=== PATIENT | female | born 1935 | race Caucasian/White ===

== ENCOUNTER 2020-02-07 05:31 | Day surgery (SDC) | payer MEDICARE, OTHER ==
[2020-02-01 15:58] LABS: BASOPHILS # (AUTO) 0.1 X10'3 (0-0.2); BASOPHILS % (AUTO) 1.1 % (0-1); EOSINOPHILS # (AUTO) 0.1 X10'3 (0-0.9); EOSINOPHILS % (AUTO) 0.8 % (0-6); LYMPHOCYTES # (AUTO) 2.2 X10'3 (1.1-4.8); LYMPHOCYTES % (AUTO) 33.9 % (21-51); MEAN CORPUSCULAR HGB CONC 32.5 g/dL (33.0-36.5); MEAN CORPUSCULAR VOLUME 92.4 FL (78-98); MEAN PLATELET VOLUME 8.8 FL (7.4-10.4); MONOCYTES # (AUTO) 0.5 X10'3 (0-0.9); MONOCYTES % (AUTO) 7.2 % (2-12); NEUTROPHILS # (AUTO) 3.7 X10'3 (1.8-7.7); PRE OP HEMATOCRIT 37.1 % (35.0-45.0); PRE OP HEMOGLOBIN 12.1 g/dL (12.0-16.0); PRE OP PLATELET COUNT 273 X10'3 (140-440); RED BLOOD COUNT 4.02 X10'6 (4.20-5.60); RED CELL DISTRIBUTION WIDTH 14.3 % (11.5-14.5)
[2020-02-01 16:06] LABS: CLARITY,URINE SLIGHTLY CLOUDY (Clear); COLOR,URINE YELLOW (Yellow); GLUCOSE, URINE NEGATIVE (Neg); KETONES,URINE NEGATIVE (Neg); LEUKOCYTE ESTERASE ,URINE NEGATIVE (Neg); NITRITES, URINE NEGATIVE (Neg); OCCULT BLOOD,URINE NEGATIVE (Neg); PROTEIN,URINE NEGATIVE (Neg); UROBILINOGEN,URINE 0.2 E.U/dL (0.2-1.0)
[2020-02-01 16:09] LABS: UA COLLECTION TYPE CLN CATCH MIDSTREAM
[2020-02-01 16:15] LABS: ALBUMIN 3.5 G/DL (3.4-5.0); ALKALINE PHOSPHATASE 48 IU/L (46-116); BLOOD UREA NITROGEN 15 MG/DL (7-18); BUN/CREATININE RATIO 14.3 (6.6-38.0); CALCIUM 8.8 MG/DL (8.5-10.1); CHLORIDE 105 MMOL/L (99-107); CREATININE 1.05 MG/DL (0.40-0.90); PRE OP ALT 25 U/L (30-65); PRE OP ANION GAP 6 (8-16); PRE OP AST 21 U/L (10-37); PRE OP BILIRUB, TOTAL 0.3 MG/DL (0.0-1.0); PRE OP GLUCOSE 125 MG/DL (70-104); PRE OP POTASSIUM 3.9 MMOL/L (3.4-5.1); PRE OP SODIUM 140 MMOL/L (135-145); TOTAL CARBON DIOXIDE 28.6 MMOL/L (24-32); TOTAL PROTEIN 7.1 G/DL (6.4-8.2); eGFR 50 ML/MIN
[2020-02-01 16:26] LABS: BACTERIA,URINE 1+ /HPF (Neg); RBC,URINE NONE SEEN /HPF (0-2); SQUAMOUS EPITHELIAL CELL,UR MANY /LPF (FEW); WBC,URINE NONE SEEN /HPF (0-4)
[2020-02-07] VITALS (23 sets, daily range): BP systolic 90–185; BP diastolic 37–89
[~2020-02-07] VITALS: Ht 160 cm; Wt 68.0 kg
[~2020-02-07 05:31] MED LIST: ASPI-1264 PO; ATOR10TA87 PO; CALC-1099 PO; CALC-793 PO; CALC667C2 PO; DOCUMENT DATE & TIME OF BETA-BLOCKER PO ONE; FLUT1DIS4 INH; HYDR-3964 PO; LISI-642 PO; METO25TA6 PO; MULT-620 PO; PANT40TA54 PO; ceFOXitin sod/dextrose 2g/50ml 50 ML IV ONE; famotidine 20mg tablet PO ONE; ringers solution, lacted 1,000 ML IV SCH
[2020-02-07] MEDS ORDERED: BUPIVAcaine/PF 2.5 mg/ml (0.25%) 30ml vial ONE (07:57)
[2020-02-07] MEDS ORDERED: sevoflurane 250ml liquid IH ONE (08:05)
[2020-02-07] MEDS ORDERED: ringers solution, lacted 1,000 ML IV SCH (08:08)
[2020-02-07] MEDS ORDERED: ondansetron/PF 4mg/2ml inj IV PRN (08:10)
[2020-02-07] MEDS ORDERED: meperidine/PF 25mg/ml syringe IV PRN ×2 (08:10)
[2020-02-07] MEDS ORDERED: acetaminophen 1,000mg/100ml IV 100 ML IV PRN (08:10)
[2020-02-07] MEDS ORDERED: proCHLORperazine 10 MG/2 ml inj IV PRN (08:10)
[2020-02-07] MEDS ORDERED: hydrALAZINE 20mg/ml inj. IV PRN (08:10)
[2020-02-07] MEDS ORDERED: morphine 2 MG/ML inj. syringe IV PRN (08:10)
[2020-02-07] MEDS ORDERED: labetalol 20mg/4ml (5mg/ml) syringe IV PRN (08:10)
[2020-02-07] MEDS ORDERED: midazolam 2 mg/2 ml injection ONE (08:13)
[2020-02-07] MEDS ORDERED: fentaNYL/PF 50MCG/1 ML 2ML syringe ONE (08:13)
[2020-02-07] MEDS ORDERED: ondansetron/PF 4mg/2ml inj ONE (08:24)
[2020-02-07] MEDS ORDERED: dexamethasone sod phosphate 4mg/ml inj. ONE (08:24)
[2020-02-07] MEDS ORDERED: propofol inj 20 ML IV ONE (08:24)
[2020-02-07] MEDS ORDERED: rocuronium 10mg/ml inj IV ONE (08:24)
[2020-02-07] MEDS ORDERED: LIDOcaine 2% (20mg/ml) 5ml vial ONE (08:24)
[2020-02-07] MEDS ORDERED: ePHEDrine 50MG/ML INJ. ONE (08:30)
[2020-02-07] MEDS ORDERED: labetalol 20mg/4ml (5mg/ml) syringe IV ONE (08:58)
[2020-02-07] MEDS ORDERED: glycopyrrolate 0.2mg/ml inj ONE (09:39)
[2020-02-07] MEDS ORDERED: neostigmine methylsulfate 1 MG/ML 10ml vial ONE (09:39)
[2020-02-07] MEDS: meperidine/PF 25mg/ml syringe IV PRN ×3 (10:03→10:33)
--- NOTE | 2020-02-07 10:05 | NUR ---
Received from OR via [facility], accompanied by Anesthesiologist DR HOWELL and report given by Anesthesiologist. PT DROWSY, DENIES PAIN, ABDOMEN W/3 LAP SITES W/BANDAIDS CDI. Addendum: 02/07/20 at 1016 by Sweta Contreras RN Amended: Links added.
[2020-02-07] MEDS: morphine 4 MG/ML inj SYRINge IV PRN ×2 (10:45→11:09)
[2020-02-07] MEDS: fentaNYL/PF 50MCG/1 ML 2ML syringe IV PRN ×2 (12:01→12:10)
[2020-02-07] MEDS ORDERED: oxyCODONE/APAP 5-325mg tablet PO ONE (12:40)
--- NOTE | 2020-02-07 15:00 | NUR ---
PAIN UNDER CONTROL, PT UP AND ABLE TO AMBULATE, WENT TO BATHROOM AND WAS ONLY ABLE TO VOID SMALL DRIBBLE, PT WAS BLADDER SCANNED FOR 480 ML, CALL INTO DR STRATTON AND UPDATED, ORDERS TO PLACE GIRON CATHETER AND SEND PT HOME. 16 [place] GIRON CATHETER PLACED BY KLAUDIA BOSS, 400 ML RETURN YELLOW URINE, GIRON CATHETER AND D/C INSTRUCTIONS GIVEN AND GONE OVER /PT WHO VERBALIZED UNDERSTANDING. PT D/CD TO HOME VIA W/C TO PRIVATE VEHICLE W/O INCIDENT. Addendum: 02/07/20 at 1553 by Sweta Contreras RN Amended: Links added.
== END 2020-02-07 15:00 | disposition home or self-care (01) ==
LOC: PAS 05:31
PROVIDERS: ATTEND Surgery
DX: K80.12 Calculus of gallbladder with acute and chronic cholecystitis without obstruction (principal); K35.80 Unspecified acute appendicitis; K38.8 Other specified diseases of appendix; E78.5 Hyperlipidemia, unspecified; I25.10 Atherosclerotic heart disease of native coronary artery without angina pectoris; I12.9 Hypertensive chronic kidney disease with stage 1 through stage 4 chronic kidney disease, or unspecified chronic kidney disease; N18.3 Chronic kidney disease, stage 3 (moderate); J44.9 Chronic obstructive pulmonary disease, unspecified; Z72.89 Other problems related to lifestyle; Z79.899 Other long term (current) drug therapy; Z87.891 Personal history of nicotine dependence; Z20.828 Contact with and (suspected) exposure to other viral communicable diseases
CPT/HCPCS: 36415; 44970; 47562; 80053; 81001; 82948; 85025; 87635; J0131; J0360; J0694; J1100; J2001; J2175; J2250; J2270; J2405; J2704; J2710; J3010; J3490; J7120; 88304; A4215; A4618; A7000

== ENCOUNTER 2025-01-16 23:33 | Emergency (ER) | payer MEDICARE, OTHER ==
[~2025-01-16] VITALS: Ht 160 cm; Wt 79.0 kg
[~2025-01-16 23:33] MED LIST changes: -DOCUMENT DATE & TIME OF BETA-BLOCKER PO ONE; +LOP25T PO; -METO25TA6 PO; -ceFOXitin sod/dextrose 2g/50ml 50 ML IV ONE; -famotidine 20mg tablet PO ONE; -ringers solution, lacted 1,000 ML IV SCH
[2025-01-17 00:20] LABS: MEAN PLATELET VOLUME 8.5 FL (7.4-10.4); RED CELL DISTRIBUTION WIDTH 13.1 % (11.5-14.5)
[2025-01-17 00:38] LABS: CREATININE 1.23 MG/DL (0.40-0.90); TOTAL CARBON DIOXIDE 24.0 MMOL/L (24-32); eCRCL 27 ML/MIN; eGFR 41 ML/MIN
--- NOTE | 2025-01-17 00:39 | Physician Documentation ---
History of Present Illness ~ Chief Complaint: Abdominal Pain w/vomiting Stated Complaint: STOMACH PAINS,VOMITING Time Seen by MD: 00:37 Primary Medical Doctor: JUAN RAMON [facility] Patient presents to the emergency room for evaluation of epigastric pain. Onset three days ago. No fevers positive nausea and vomiting. No diarrhea. No bowel movements in a few days however she attributes this to not eating. She has had prior cholecystectomy as well as appendectomy. Medication Reconciliation Allergies: Coded Allergies: Iodine and Iodide Containing Produc (Verified Allergy, Intermediate, rash, 12/13/22) No Known Drug Allergies (Verified Allergy, Unknown, 02/06/20) Scheduled Aspirin* (Aspirin*), 1 TAB PO DAILY, (Reported) Atorvastatin Calcium* (Lipitor*), Unknown Dose PO DAILY, (Reported) Calcium Acetate (Phoslo), 1 CAP PO DAILY, (Reported) Calcium Carbonate (Calcium), 1 TAB PO BID, (Reported) Calcium Carbonate/Vitamin D3 (Vitamin D3 5,000 Unit Tablet), 1 TABLET PO DAILY, (Reported) Fluticasone/Salmeterol (Advair 250-50 Diskus), 1 PUFFS INH BID, (Reported) Lisinopril* (Zestril*), 1 TAB PO DAILY, (Reported) Metoprolol Tartrate* (Lopressor tablet*), 1 TAB PO Q12H, (Reported) Multivitamins (Multivitamins), 1 TABLET PO DAILY, (Reported) Pantoprazole Sodium (Pantoprazole Sodium), 1 TAB PO DAILY, (Reported) Scheduled PRN Hydrocodone Bit/Acetaminophen (Hydrocodon-Acetaminophen 5-325), 1 TAB PO BID PRN for pain, (Reported) Past Medical History Past Medical History: Coronary Artery Disease, COPD, GERD Past Surgical History: no surgical history Other Past Surgical History: Cardiac Cath Patient History: (Cancer) Malignant carcinoid tumor MOTHER, , Age: 86, Cause: Liver cancer ([place]) Myocardial infarction FATHER, , Age: 69, Cause: [place] (myocardial infarction) Alcohol Use: None Drug Use: none Lives with: S/O Lives In: Home Review of Systems ROS All review of systems negative except as per HPI Physical Exam Vital Signs: Temperature: 97.0, Source: Temporal, Heart Rate: 89, Respiratory Rate: 16, BP: 154/80, Pulse Oximetry: 97, Weight: 79.000 Oxygen Flow Rate: 0 Physical Exam General: Patient is awake, alert, oriented x4 in no acute distress Head: Normocephalic and atraumatic. Eyes: Conjunctival normal. EOMI. PERRL. ENT: Mucous membranes moist. Neck: Supple, trachea is midline. Chest: Clear to auscultation bilaterally without rales, rhonchi, or wheezes. There is no accessory muscle use or retractions. Cardiac: RRR without murmurs, gallops, or rubs. Abd: Soft, nondistended, nontender, with normoactive bowel sounds. No guarding, rebound, or rigidity. Progress Results/Orders Results/Orders Orders - HERB ALVES MD Ct Abdomen Pelvis (01/17/25 00:43) Completed Orders - HERB ALVES MD Cbc/Diff (01/16/25 23:37) BMP (01/16/25 23:37) Lipase (01/16/25 23:37) CMP (01/16/25 23:37) Ondansetron Inj. (Zofran 4mg/2ml Vial) (01/17/25 00:45) Morphine 4mg/Ml Inj. (Morphine Inj.) (01/17/25 00:45) Famotidine/Pf Iv Inj (Pepcid Iv Inj) (01/17/25 00:45) Pantoprazole 40mg Iv (Protonix 40mg Iv) (01/17/25 00:45) Ct Abdomen Pelvis (01/17/25 00:43) Normal Saline 1000ml (0.9% Sodium Chlori (01/17/25 00:45) Ua W/Microscopic, Cult If Ind (01/17/25 01:11) Ceftriaxone/C0z-[id number] 1gm (Rocephin 1 (01/17/25 02:20) Hs Troponin I W Calculations (01/17/25 02:21) Medications Received in ER Medications (Trade) Dose Ordered Sig/Hermelindo Route PRN Reason Start Time Stop Time Status Last Admin Dose Admin (Zofran 4mg/2ml vial) 4 mg ONCE ONCE IV 01/17/25 00:45 01/17/25 00:46 DC 01/17/25 01:19 4 MG (morphine inj.) 2 mg ONCE ONCE IV 01/17/25 00:45 01/17/25 00:46 DC 01/17/25 01:19 2 MG (Pepcid IV inj) 20 mg ONCE ONCE IV 01/17/25 00:45 01/17/25 00:46 DC 01/17/25 01:19 20 MG (Protonix 40mg IV) 40 mg ONCE ONCE IV 01/17/25 00:45 01/17/25 00:46 DC 01/17/25 01:19 40 MG Sodium Chloride 1,000 ml @ 1,000 mls/hr ONCE ONCE IV 01/17/25 00:45 01/17/25 01:44 DC 01/17/25 01:19 1,000 MLS/HR Ceftriaxone Sodium 50 ml @ 100 mls/hr ONCE ONCE IV 01/17/25 02:20 01/17/25 02:49 DC 01/17/25 02:47 100 MLS/HR Vital Signs 01/16/25 01/17/25 23:38 01:19 Temp 97.0 Pulse 89 Resp 16 16 B/P (MAP) 154/80 Pulse Ox 97 O2 Flow Rate 0 Laboratory Tests Test 01/17/25 00:03 01/17/25 01:11 01/17/25 02:30 White Blood Count 8.9 Red Blood Count 4.16 L Hemoglobin 12.8 Hematocrit 37.2 Mean Corpuscular Volume 89.4 Mean Corpuscular Hemoglobin 30.8 Mean Corpuscular Hemoglobin Concent 34.5 Red Cell Distribution Width 13.1 Platelet Count 294 Mean Platelet Volume 8.5 Neutrophils (%) (Auto) 69.0 Lymphocytes (%) (Auto) 22.9 Monocytes (%) (Auto) 7.5 Eosinophils (%) (Auto) 0.1 Basophils (%) (Auto) 0.5 Neutrophils # (Auto) 6.1 Lymphocytes # (Auto) 2.0 Monocytes # (Auto) 0.7 Eosinophils # (Auto) 0.0 Basophils # (Auto) 0.0 CBC Comment Sodium Level 143 Potassium Level 3.6 Chloride Level 107 Carbon Dioxide Level 24.0 Anion Gap 12 Blood Urea Nitrogen 25 H Creatinine 1.23 H Estimated GFR/1.73 m2 41 BUN/Creatinine Ratio 20.3 H Glucose Level 124 H Calcium Level 9.1 Total Bilirubin 0.6 Aspartate Amino Transf (AST/SGOT) 26 Alanine Aminotransferase (ALT/SGPT) 22 Alkaline Phosphatase 67 Total Protein 7.8 Albumin 4.0 Globulin 3.8 Albumin/Globulin Ratio 1.1 Lipase 88 H Chemistry Comments Urine Specimen Description Voided Urine Color Yellow Urine Clarity Slightly cloudy Urine pH 6.5 Urine Specific [place] 1.020 Urine Protein Trace Urine Glucose (UA) Negative Urine Ketones >=80 Urine Occult Blood Negative Urine Nitrite Negative Urine Bilirubin Negative Urine Urobilinogen 1.0 Urine Leukocyte Esterase Large H Urine RBC 0-2 Urine WBC 20-30 H Urine Squamous Epithelial Cells Many Urine Bacteria 3+ Urine Mucus Many Urine Culture Indicated Rejected for culture Volume Urine Centrifuged 10 ml Urine Comment Troponin I High Sensitivity 18 Medical Decision Making Findings Patient presents to the emergency room with abdominal pain as per HPI. D ifferentials include but are not limited to ACS, gastritis, cholecystitis, appendicitis, diverticulitis, pancreatitis, kidney stone therefore emergent labs and imaging indicated. Labs show urinary tract infection. No elevation of white blood cell count. Patient states she is feeling better. Suspected viral syndrome. Departure Disposition: HOME / SELF CARE / HOMELESS Impression: Primary Impression: Acute gastritis Condition: Improved Discharge Instructions: Gastritis, Adult Referrals: NO PRIMARY CARE PROVIDER (PCP) Prescriptions Pantoprazole Sodium (PROTONIX tablet) 40 Mg Tablet.dr 1 TAB PO DAILY, #7 TAB 0 Refills Prov: HERB ALVES MD 01/17/25 Ondansetron 8mg ODT (Ondansetron Odt) 8 Mg Tab.rapdis 1 TAB PO Q6H for nausea/vomiting for 3 Days, #12 TAB 0 Refills Prov: HERB ALVES MD 01/17/25 Education Educated: Patient Educated regarding: diagnosis, treatment, need for follow up Signature Scribe Signature: no scribe Attestation: The note accurately reflects work and decisions made by me.Herb Alves MD 01/17/25 03:06 HERB ALVES MD Jan 17, 2025 00:39
[2025-01-17] MEDS: morphine 4 MG/ML inj SYRINge IV ONE (01:19)
[2025-01-17] MEDS: normal saline 1000ml 1,000 ML IV ONE (01:19)
[2025-01-17] MEDS: ondansetron/PF 4mg/2ml inj IV ONE (01:19)
[2025-01-17] MEDS: famotidine/PF 10 mg/ml inj IV ONE (01:19)
[2025-01-17 01:48] LABS: LEUKOCYTE ESTERASE ,URINE LARGE (Neg); NITRITES, URINE NEGATIVE (Neg); OCCULT BLOOD,URINE NEGATIVE (Neg)
[2025-01-17 01:49] LABS: UA COLLECTION TYPE VOIDED
--- NOTE | 2025-01-17 01:52 | RADIOLOGY REPORT ---
Exam: CT CT ABDOMEN PELVIS History: abd pain Comparison Study: None Technique: Multidetector spiral CT of the abdomen was performed from lung bases to pubic symphysis. I maging was performed without IV contrast. Axial, coronal and sagittal multiplanar reformats were obta ined from the axial data set by the technologist. Radiation Dose : 1. Abdomen/Pelvis: CTDIvol 24 mGy, DLP 75472 mGy*cm. Findings: Evaluation of solid organs is limited due to lack of intravenous contrast use. Lower Chest: Coarse reticular opacities in the lung bases without consolidation. Normal heart size. Liver: Unremarkable. Gallbladder and Biliary Tree: Cholecystectomy. Pancreas: Zqoa-xi-bjkkywsy atrophy. Spleen: Unremarkable. Adrenal Glands: Unremarkable. Kidneys/Ureters: No obstruction. Punctate nonobstructing calcification in the right renal hilum. Per inephric stranding likely senescent. Bladder: Grossly unremarkable for degree of distention. Pelvic Organs: Unremarkable Bowel: No bowel wall thickening or obstruction. Small hiatal hernia. Prior right hemicolectomy. [place] jillian diverticulosis without evidence of diverticulitis. Vasculature: Mild atherosclerosis. Lymphadenopathy: No obvious adenopathy. Peritoneum: No ascites, free air, or fluid collection. Abdominal Wall: No significant hernia. Musculoskeletal: No acute findings. Diffuse osteopenia. Multilevel spondylosis. IMPRESSION: 1. No acute abdominal or pelvic findings. 2. Nonobstructing right nephrolith or vascular calcification. 3. Uncomplicated colonic diverticulosis. Hiatal hernia. Additional chronic and incidental findings a kelly. Radiation optimization: All CT scans at this facility use at least one of these dose optimization benton hniques: automated exposure control mA and/or kV adjustment per patient size (includes targeted exam s where dose is matched to clinical indication) or iterative reconstruction.
[2025-01-17 01:55] LABS: MUCUS STRANDS MANY /LPF (Neg); SQUAMOUS EPITHELIAL CELL,UR MANY /LPF (FEW)
[2025-01-17 02:00] VITALS: BP 148/82
[2025-01-17] MEDS: CefTRIAXone/D5W-Rocephin 1gm 50 ML IV ONE (02:47)
[2025-01-17] MEDS ORDERED: PANT-47 PO (03:05)
[2025-01-17] MEDS ORDERED: ONDA-245 PO (03:05)
[2025-01-17 03:20] VITALS: PULSE 68; RESP 16; TEMP 97; O2SAT 100
== END 2025-01-17 03:21 | disposition home or self-care (01) ==
LOC: ER 23:33
DX: K29.00 Acute gastritis without bleeding (principal); I25.10 Atherosclerotic heart disease of native coronary artery without angina pectoris; K21.9 Gastro-esophageal reflux disease without esophagitis; J44.9 Chronic obstructive pulmonary disease, unspecified; Z79.82 Long term (current) use of aspirin; Z88.8 Allergy status to other drugs, medicaments and biological substances; Z90.49 Acquired absence of other specified parts of digestive tract
CPT/HCPCS: 36415; 74176; 80053; 81001; 83690; 84484; 85025; 96361; 96365; 96375; 99285; J0696; J2270; J2405; J2470; J3490; J7030